=== PATIENT | female | born 1955 | race Caucasian/White ===

== ENCOUNTER → 2023-03-08 11:31 | Outpatient (CLI) | payer MEDICARE, SELFPAY ==
--- NOTE | ~2023-03-08 | MR_ITS ---
EXAMINATION: MR shoulder LT w con DATE: 03/08/2023 13:11 INDICATION: Left shoulder pain TECHNIQUE: Magnetic resonance imaging (MRI) of the left shoulder was performed following intra-artic ular gadolinium contrast injection and without intravenous contrast. Details of the glenohumeral join t injection have been dictated separately. Sequences included axial T2-weighted FS FSE, axial T1-sonia ghted FS FSE, coronal oblique T1-weighted FS FSE, coronal oblique T2-weighted FSE, sagittal T2-weight ed FS FSE, sagittal T1-weighted FSE, and ABER (abduction external rotation) T1-weighted FS FSE. COMPARISON: None. FINDINGS: Coracoacromial arch: The acromion undersurface is curved in morphology (type II). Small subacromial spur along the anterol ateral margin of the acromion at the footplate of the normal coracoacromial ligament. Moderate acromi oclavicular osteoarthritis with small superiorly and inferiorly directed osteophytes at the lateral h ead of the clavicle. The latter about the cephalad margin of the supraspinatus muscle and tendon wit h effacement of the intervening fat plane. Rotator cuff: Mild supraspinatus and anterior infraspinatus tendinopathy without tear. The more posterior infraspin atus tendon and teres minor tendon are normal. Additional mild tendinopathy without discrete tear of the subscapularis tendon. Normal rotator cuff muscle bulk and signal. Biceps tendon, glenoid labrum and glenohumeral cartilage: Long head of the biceps tendon is normal. There is a superior, anterior to posterior tear of the emmanuel oid labrum (SLAP tear) extends from the 10:30 position posteriorly to the 1:30 position anteriorly wi th extension into the superior and middle glenohumeral ligaments. The inferior labrum is diminutive b ut without discrete tear. There are small marginal osteophytes and mild subarticular edema-like and c ystlike changes along the inferior and anteroinferior rim of the glenoid. The glenohumeral cartilage appears relatively preserved. Bones and other: Bone alignment is normal. No fracture or pathologic marrow replacing process. No abnormal fluid sig nal in the subacromial/subdeltoid bursa to suggest bursitis. IMPRESSION: 1. Mild subscapularis, supraspinatus and anterior infraspinatus tendinopathy without tear. 2. Mild glenohumeral osteoarthritis with SLAP tear at the superior glenoid labrum which extends into the superior and middle glenohumeral ligaments. 3. Moderate acromioclavicular osteoarthritis. Reviewed, dictated and finalized at location B. IMPRESSION: 1. Mild subscapularis, supraspinatus and anterior infraspinatus tendinopathy wi thout tear. 2. Mild glenohumeral osteoarthritis with SLAP tear at the superior glenoid labr um which extends into the superior and middle glenohumeral ligaments. 3. Moderate acromioclavicular osteoarthritis.
--- NOTE | ~2023-03-08 | XR_ITS ---
EXAMINATION: XR fl inj shoulder LT - MR/CT DATE: 03/08/2023 12:32 INDICATION: Left shoulder pain and limited range of motion TECHNIQUE: A time-out was performed to verify the patient's name, date of , and procedure to b e performed. The procedure including the risks, benefits, and alternatives was discussed with the pat ient. Risks discussed included bleeding and infection. The patient understood the risks and agreed to proceed. The skin overlying the rotator cuff interval of the left glenohumeral joint was prepped an d draped in usual sterile fashion. Anesthetic was administered with 1% lidocaine subcutaneously. A 22 G needle was advanced under fluoroscopic guidance into the joint. Injection of 1 mL of Omnipaque 240 confirmed intra-articular position of the needle. Subsequently, injectate consisting of 12 mL of 2:1:1 mixture of sterile saline:Omnipaque 240:1% lidocaine mixed 200:1 with 529 mg/mL Multihance amber olinium contrast was injected with intra-articular administration confirmed with intermittent fluoros copy. The needle was removed and the entry site was cleaned and dressed. There were no immediate com plications. Fluoroscopy exposure time was 0.3 minutes. The total number of images was 141. FINDINGS: Real-time fluoroscopy demonstrates the needle in the left glenohumeral joint. IMPRESSION: 1. Successful left glenohumeral joint injection of a dilute gadolinium contrast mixture for subsequen t MRI arthrogram which will be dictated separately. Reviewed, dictated and finalized at location B. IMPRESSION: 1. Successful left glenohumeral joint injection of a dilute gadolinium contrast mixture for subsequent MRI arthrogram which will be dictated separately.
== END ==
DX: M19.012 Primary osteoarthritis, left shoulder (principal); S43.432A Superior glenoid labrum lesion of left shoulder, initial encounter; X58.XXXA Exposure to other specified factors, initial encounter
CPT/HCPCS: 23350; 73222; A9577; Q9967